=== PATIENT | female | born 1990 | race Caucasian/White ===

== ENCOUNTER 2024-08-31 21:46 | Emergency (ER) | payer BC, OTHER ==
[~2024-08-31] VITALS: Ht 162.6 cm; Wt 56.7 kg
[2024-08-31] MEDS ORDERED: SUMATRIPTAN SUCCINATE 6 MG/0.5 ML VIAL SQ ONE (22:35)
[2024-08-31] MEDS ORDERED: METOCLOPRAMIDE HCL 10 MG/2 ML VIAL ONE (22:35)
[2024-08-31] MEDS: METOCLOPRAMIDE HCL 10 MG/2 ML VIAL IV ONE (22:48)
[2024-08-31] MEDS: SUMATRIPTAN SUCCINATE 6 MG/0.5 ML VIAL SQ ONE (22:48)
[2024-08-31] MEDS: IV NS 0.9% 1,000 ML BAG IV ONE (22:48)
[2024-08-31] MEDS ORDERED: RIME75TA PO (23:19)
[2024-08-31] MEDS ORDERED: ONDA4TAB5 PO (23:19)
[2024-08-31 23:52] VITALS: BP 118/70; TEMP 98; O2SAT 99
== END 2024-08-31 23:53 | disposition home or self-care (01) ==
LOC: ER 21:55
DX: G43.909 Migraine, unspecified, not intractable, without status migrainosus (principal); R11.2 Nausea with vomiting, unspecified; Z88.0 Allergy status to penicillin; Z60.2 Problems related to living alone
CPT/HCPCS: 99285; 96374; 70450; 96361; 96372; J3030; J2765; J7030 ×2

== ENCOUNTER 2024-10-07 05:10 | Emergency (ER) | payer OTHER ==
[~2024-10-07] VITALS: Ht 160 cm; Wt 57.6 kg
[~2024-10-07 05:10] MED LIST: ONDA4TAB5 PO; RIME75TA PO
[2024-10-07] MEDS ORDERED: METOCLOPRAMIDE HCL 10 MG/2 ML VIAL ONE (05:45)
[2024-10-07] MEDS ORDERED: KETOROLAC TROMETHAMINE INJ 30 MG/ML VIAL ONE (05:45)
[2024-10-07] MEDS ORDERED: GABA-532 PO (05:54)
[2024-10-07] MEDS: METOCLOPRAMIDE HCL 10 MG/2 ML VIAL IV ONE (05:58)
[2024-10-07] MEDS: KETOROLAC TROMETHAMINE INJ 30 MG/ML VIAL IV ONE (05:59)
[2024-10-07 06:42] VITALS: BP 118/78; TEMP 98; O2SAT 98
== END 2024-10-07 06:42 | disposition home or self-care (01) ==
LOC: ER 05:12
DX: G43.909 Migraine, unspecified, not intractable, without status migrainosus (principal); Z88.0 Allergy status to penicillin; Z60.2 Problems related to living alone
CPT/HCPCS: 99284; 96374; 96375; J1885; J1200; J2765